=== PATIENT | male | born 1950 | race Asian ===

== ENCOUNTER 2018-06-17 09:31 | Emergency (ER) | payer BC ==
[~2018-06-17] VITALS: Ht 170.2 cm; Wt 60.8 kg
[2018-06-17 09:31] VITALS: BP_SYST 168
[2018-06-17] MEDS ORDERED: KETOROLAC TROMETHAMINE 30 MG VIAL IVP ONE (09:45)
[2018-06-17] MEDS ORDERED: ONDANSETRON HCL 4 MG/2 ML VIAL IVP ONE (09:45)
[2018-06-17 10:19] LABS: BASOPHILS # (AUTO) 0.1 K/uL (0.0-0.2); EOSINOPHILS # (AUTO) 0.1 K/uL (0.0-0.4); EOSINOPHILS % (AUTO) 1.3 % (0.0-4.0); HEMATOCRIT 41.2 % (36-54); HEMOGLOBIN 13.4 g/dL (14.0-18.0); LYMPHOCYTES % (AUTO) 22.6 % (20.5-51.5); MEAN CORPUSCULAR HEMOGLOBIN 27 pg (27-31); MEAN CORPUSCULAR HGB CONC 33 % (32-36); MEAN CORPUSCULAR VOLUME 81 fL (79.0-98.0); MONOCYTES # (AUTO) 0.8 K/uL (0.0-1.0); MONOCYTES % (AUTO) 8.8 % (1.7-9.3); NEUTROPHILS # (AUTO) 5.8 K/uL (1.8-7.7); NEUTROPHILS % (AUTO) 66.3 % (40.0-70.0); PLATELET COUNT (AUTO) 310 K/uL (130-430); RED BLOOD CELL COUNT(AUTO) 5.07 MIL/uL (4.2-6.2); WHITE BLOOD COUNT (AUTO) 8.7 K/uL (4.8-10.8)
[2018-06-17 10:23] LABS: BILIRUBIN,URINE NEGATIVE (NEGATIVE); BLOOD, URINE 1+ (NEGATIVE); CLARITY/URINE CLEAR (CLEAR); COLOR,URINE YELLOW (YELLOW); GLUCOSE,URINE NEGATIVE (NEGATIVE); KETONES,URINE NEGATIVE (NEGATIVE); LEUKOCYTE ESTERASE ,URINE TRACE (NEGATIVE); NITRITE, URINE NEGATIVE (NEGATIVE); PH,URINE 6.5 (5.0-8.0); PROTEIN URINE TRACE (NEGATIVE); UROBILINOGEN,URINE 0.2 (0.2-1.0)
[2018-06-17 10:27] LABS: CALCIUM 9.3 mg/dL (8.4-11.0); CREATININE 2.34 mg/dL (0.55-1.30); POTASSIUM 3.9 mmol/L (3.5-5.1)
[2018-06-17 10:32] LABS: ALBUMIN 3.1 g/dL (3.4-4.8); TOTAL BILIRUBIN 0.5 mg/dL (0.0-1.0)
[2018-06-17 10:41] LABS: BACTERIA,URINE FEW /HPF (None Seen); RBC,URINE 0-3 /HPF (0-3)
[2018-06-17 10:42] LABS: MUCUS,URINE None Seen /LPF (None Seen)
[2018-06-17 12:00] VITALS: BP_SYST 154
== END 2018-06-17 12:00 | disposition home or self-care (01) ==
LOC: SED 09:31
DX: R07.81 Pleurodynia (principal); I10 Essential (primary) hypertension
CPT/HCPCS: 36415; 74176; 80053; 81000; 85025; 87086; 96374; 96375; 99284; J1885; J2405

== ENCOUNTER 2018-09-18 06:12 | Observation (INO) | payer BC ==
[~2018-09-18] VITALS: Ht 170.2 cm; Wt 57.2 kg
[2018-09-18 06:15] VITALS: BP_SYST 165
[2018-09-18] MEDS ORDERED: NITROGLYCERIN 0.4 MG TAB.SUBL SL ONE (06:45)
[2018-09-18] MEDS ORDERED: ASPIRIN 325 MG TABLET PO ONE (06:45)
[2018-09-18] MEDS ORDERED: SIMV10TA2 PO (06:58)
[2018-09-18] MEDS ORDERED: DOCU-144 PO (06:58)
[2018-09-18] MEDS ORDERED: PRED-531 PO (06:58)
[2018-09-18] MEDS ORDERED: IBUP-1968 PO (06:58)
[2018-09-18] MEDS ORDERED: NACL 0.9% 1,000 ML IV ONE ×2 (07:00→07:15)
[2018-09-18 07:05] LABS: BASOPHILS % (AUTO) 0.5 % (0.0-2.0); EOSINOPHILS # (AUTO) 0.1 K/uL (0.0-0.4); EOSINOPHILS % (AUTO) 1.1 % (0.0-4.0); HEMATOCRIT 32.7 % (36-54); LYMPHOCYTES % (AUTO) 12.9 % (20.5-51.5); MEAN CORPUSCULAR HEMOGLOBIN 25 pg (27-31); MEAN CORPUSCULAR HGB CONC 32 % (32-36); MEAN CORPUSCULAR VOLUME 76 fL (79.0-98.0); MONOCYTES # (AUTO) 0.5 K/uL (0.0-1.0); MONOCYTES % (AUTO) 5.9 % (1.7-9.3); NEUTROPHILS # (AUTO) 6.4 K/uL (1.8-7.7); NEUTROPHILS % (AUTO) 79.6 % (40.0-70.0); PLATELET COUNT (AUTO) 258 K/uL (130-430); RED CELL DISTRIBUTION WIDTH 15.6 % (9.0-15.0)
[2018-09-18] MEDS ORDERED: PIPERACILLIN/TAZO 3.375 GM in NS 50 ML IV ONE (07:15)
[2018-09-18] MEDS ORDERED: VANCOMYCIN HCL 1,000 MG in NS 250 ML IV ONE (07:15)
[2018-09-18 07:16] LABS: CREATININE 1.81 mg/dL (0.55-1.30); POTASSIUM 4.7 mmol/L (3.5-5.1)
[2018-09-18 07:21] LABS: ALBUMIN 1.9 g/dL (3.4-4.8); HEMOGLOBIN 10.5 g/dL (14.0-18.0); TOTAL BILIRUBIN 0.3 mg/dL (0.0-1.0)
[2018-09-18] MEDS ORDERED: VANCOMYCIN HCL 1000 MG/VIAL IV ONE (07:29)
[2018-09-18] MEDS ORDERED: PIPERACILLIN/TAZOBACTAM 3.375 GM/VIAL (ZOSYN) IV ONE ×2 (07:29→07:41)
[2018-09-18 07:47] LABS: INR 1.1 (0.80-1.20); PROTHROMBIN TIME 10.8 SECS (9.5-12.5)
[2018-09-18 07:51] LABS: BILIRUBIN,URINE NEGATIVE (NEGATIVE); CLARITY/URINE CLEAR (CLEAR); COLOR,URINE YELLOW (YELLOW); GLUCOSE,URINE NEGATIVE (NEGATIVE); KETONES,URINE NEGATIVE (NEGATIVE); LEUKOCYTE ESTERASE ,URINE NEGATIVE (NEGATIVE); NITRITE, URINE NEGATIVE (NEGATIVE); PROTEIN URINE 1+ (NEGATIVE); UROBILINOGEN,URINE 0.2 (0.2-1.0)
[2018-09-18 07:56] LABS: BLOOD, URINE TRACE (NEGATIVE)
[2018-09-18 08:17] LABS: BACTERIA,URINE FEW /HPF (None Seen); RBC,URINE 0-3 /HPF (0-3); WBC,URINE 0-3 /HPF (0-3)
[2018-09-18 08:18] LABS: MUCUS,URINE None Seen /LPF (None Seen)
[2018-09-18 09:59] VITALS: BP_SYST 147
[2018-09-18] MEDS ORDERED: *HEPARIN PER PHARMACY XX ONE (10:45)
[2018-09-18] MEDS ORDERED: HEPARIN SODIUM,PORCINE 2000 UNITS/0.4 ML BOLUS IVP PRN (11:30)
[2018-09-18] MEDS ORDERED: HEPARIN SODIUM,PORCINE 5000 UNITS/ML VIAL IV ONE (11:30)
[2018-09-18] MEDS ORDERED: methylPREDNISolone SOD SUCC/PF 62.5 MG/ML VIAL IVP ONE (12:30)
[2018-09-18] MEDS: HEPARIN 25,000 UNITS in 250 ML PREMIX IV PRN ×2 (13:13→20:39)
[2018-09-18] MEDS: NACL 0.9% 1,000 ML IV SCH (13:16)
[2018-09-18] MEDS ORDERED: MORPHINE 2 MG/ML INJ. SYRINGE IVP PRN (14:00)
[2018-09-18] MEDS: MORPHINE 4 MG/ML INJ. SYRINGE IVP PRN ×2 (14:17→20:58)
[2018-09-18] MEDS ORDERED: ALBUTEROL SULFATE 0.083% 2.5 MG/3 ML VIAL.NEB INH PRN (14:30)
[2018-09-18] MEDS ORDERED: IPRATROPIUM BROM 0.5 MG/2.5 ML VIAL.NEB (ATROVENT) INH PRN (14:30)
[2018-09-18] MEDS ORDERED: DOCUSATE SODIUM 100 MG CAPSULE PO ONE (15:00)
[2018-09-18 15:15] VITALS: BP_SYST 147
[2018-09-18] MEDS: IPRATROPIUM BROM 0.5 MG/2.5 ML VIAL.NEB (ATROVENT) INH SCH ×3 (16:13→23:00)
[2018-09-18] MEDS: ALBUTEROL SULFATE 0.083% 2.5 MG/3 ML VIAL.NEB INH SCH ×3 (16:13→23:00)
[2018-09-18 19:50] LABS: INR 1.1 (0.80-1.20); PROTHROMBIN TIME 11.2 SECS (9.5-12.5)
[2018-09-18 20:00] VITALS: BP_SYST 137
[2018-09-18] MEDS: HEPARIN SODIUM,PORCINE 3000 UNITS/0.6 ML BOLUS IVP PRN (20:32)
[2018-09-18] MEDS: methylPREDNISolone SOD SUCC/PF 62.5 MG/ML VIAL IVP SCH (20:51)
[2018-09-19 02:40] VITALS: BP_SYST 134
[2018-09-19] MEDS: NACL 0.9% 1,000 ML IV SCH (03:32)
[2018-09-19 03:33] LABS: HEMATOCRIT 29.3 % (36-54); HEMOGLOBIN 9.3 g/dL (14.0-18.0); MEAN CORPUSCULAR HEMOGLOBIN 24 pg (27-31); MEAN CORPUSCULAR HGB CONC 32 % (32-36); MEAN CORPUSCULAR VOLUME 76 fL (79.0-98.0); PLATELET COUNT (AUTO) 247 K/uL (130-430); RED BLOOD CELL COUNT(AUTO) 3.85 MIL/uL (4.2-6.2); RED CELL DISTRIBUTION WIDTH 15.8 % (9.0-15.0); WHITE BLOOD COUNT (AUTO) 7.7 K/uL (4.8-10.8)
[2018-09-19] MEDS: MORPHINE 4 MG/ML INJ. SYRINGE IVP PRN (03:33)
[2018-09-19 03:48] LABS: ALBUMIN 1.8 g/dL (3.4-4.8); CALCIUM 9.2 mg/dL (8.4-11.0); CREATININE 1.86 mg/dL (0.55-1.30); POTASSIUM 4.5 mmol/L (3.5-5.1); TOTAL BILIRUBIN 0.2 mg/dL (0.0-1.0)
[2018-09-19] MEDS: HEPARIN SODIUM,PORCINE 3000 UNITS/0.6 ML BOLUS IVP PRN (04:30)
[2018-09-19 04:32] LABS: BAND % (MANUAL) 3 % (0-6); BASOPHILS % (MANUAL) 0 % (0-2); EOSINOPHILS % (MANUAL) 1 % (0-7); LYMPHOCYTES % (MANUAL) 7 % (20-46); METAMYELOCYTES % 5 % (0-0); MONOCYTES % (MANUAL) 1 % (0-11)
[2018-09-19] MEDS: HEPARIN 25,000 UNITS in 250 ML PREMIX IV PRN (04:34)
[2018-09-19 04:55] LABS: ERYTHROCYTE SEDIMENTATION RATE 92 MM/HR (0-15)
[2018-09-19] MEDS: methylPREDNISolone SOD SUCC/PF 62.5 MG/ML VIAL IVP SCH (06:54)
[2018-09-19] MEDS: IPRATROPIUM BROM 0.5 MG/2.5 ML VIAL.NEB (ATROVENT) INH SCH (07:27)
[2018-09-19] MEDS: ALBUTEROL SULFATE 0.083% 2.5 MG/3 ML VIAL.NEB INH SCH (07:27)
[2018-09-19 08:20] VITALS: BP_SYST 154
[2018-09-19] MEDS ORDERED: DOCUSATE SODIUM 100 MG CAPSULE PO SCH (09:00)
[2018-09-19 10:38] VITALS: BP_SYST 149
[2018-09-19 11:33] VITALS: BP_SYST 133
== END 2018-09-19 11:10 | disposition home or self-care (01) ==
LOC: SED 06:12 → STU 08:40
PROVIDERS: ADMIT Internal Medicine Hospice and Palliative Medicine; ATTEND Internal Medicine Hospice and Palliative Medicine
DX: R07.9 Chest pain, unspecified (principal); R42 Dizziness and giddiness; R06.02 Shortness of breath; C81.90 Hodgkin lymphoma, unspecified, unspecified site; R79.1 Abnormal coagulation profile; E11.9 Type 2 diabetes mellitus without complications; I10 Essential (primary) hypertension; E78.00 Pure hypercholesterolemia, unspecified; E78.5 Hyperlipidemia, unspecified; N17.9 Acute kidney failure, unspecified
CPT/HCPCS: 36415; 71045; 76770; 78579; 78580-TC; 80053; 81000-TC; 82550-TC; 83605; 83880; 84484; 85007; 85025; 85027; 85379; 85610-TC; 85651-TC; 85730-TC; 87040-TC; 87081; 93005; 93970; 94640; 94760; 96365; 96366; 96367; 96368; 99285; A9539; A9540; G0378; J1644; J2270; J2543; J2930; J3370; J7030; J7613

== ENCOUNTER 2018-10-08 21:08 | Inpatient (IN) | payer BC ==
[~2018-10-08] VITALS: Ht 170.2 cm; Wt 55.5 kg
[~2018-10-08 21:08] MED LIST: DOCU-144 PO; IBUP-1968 PO; PRED-531 PO; SIMV10TA2 PO
[2018-10-08 21:16] VITALS: BP_SYST 123
[2018-10-08] MEDS ORDERED: NACL 0.9% 1,000 ML IV ONE ×2 (21:45→23:45)
[2018-10-08] MEDS ORDERED: IBUPROFEN 800 MG TABLET PO ONE (22:00)
[2018-10-08] MEDS ORDERED: LEVOFLOXACIN 500 MG/D5W 100 ML IV ONE (22:45)
[2018-10-08] MEDS ORDERED: PIPERACILLIN/TAZO 3.375 GM in NS 50 ML IV ONE (22:45)
[2018-10-08] MEDS ORDERED: PIPERACILLIN/TAZOBACTAM 3.375 GM/VIAL (ZOSYN) IV ONE (23:06)
[2018-10-08] MEDS ORDERED: MORP100T24 PO (23:07)
[2018-10-08 23:10] LABS: CALCIUM 8.3 mg/dL (8.4-11.0); CREATININE 1.67 mg/dL (0.55-1.30); POTASSIUM 5.5 mmol/L (3.5-5.1)
[2018-10-08 23:16] LABS: BILIRUBIN,URINE NEGATIVE (NEGATIVE); BLOOD, URINE 1+ (NEGATIVE); CLARITY/URINE CLEAR (CLEAR); COLOR,URINE YELLOW (YELLOW); GLUCOSE,URINE NEGATIVE (NEGATIVE); KETONES,URINE NEGATIVE (NEGATIVE); LEUKOCYTE ESTERASE ,URINE TRACE (NEGATIVE); NITRITE, URINE NEGATIVE (NEGATIVE); PH,URINE 5.5 (5.0-8.0); PROTEIN URINE 1+ (NEGATIVE)
[2018-10-08 23:17] LABS: TOTAL BILIRUBIN 1.1 mg/dL (0.0-1.0)
[2018-10-08 23:24] LABS: INR 1.1 (0.80-1.20)
[2018-10-08 23:32] LABS: BACTERIA,URINE FEW /HPF (None Seen)
[2018-10-08] MEDS ORDERED: SODIUM POLYSTYRENE SULFONATE 15 GM/60 ML UDBTL PO ONE (23:45)
[2018-10-08 23:47] LABS: HEMOGLOBIN 8.9 g/dL (14.0-18.0); MEAN CORPUSCULAR HEMOGLOBIN 24 pg (27-31); MEAN CORPUSCULAR HGB CONC 32 % (32-36); MEAN CORPUSCULAR VOLUME 75 fL (79.0-98.0); RED BLOOD CELL COUNT(AUTO) 3.73 MIL/uL (4.2-6.2); RED CELL DISTRIBUTION WIDTH 16.7 % (9.0-15.0)
[2018-10-08 23:48] LABS: WHITE BLOOD COUNT (AUTO) 0.2 K/uL (4.8-10.8)
[2018-10-08 23:49] LABS: PLATELET COUNT (AUTO) 37 K/uL (130-430)
[2018-10-09 00:41] LABS: BASOPHILS % (MANUAL) 0 % (0-2); EOSINOPHILS % (MANUAL) 2 % (0-7); LYMPHOCYTES % (MANUAL) 88 % (20-46); MONOCYTES % (MANUAL) 4 % (0-11)
[2018-10-09 01:33] VITALS: BP_SYST 137
[2018-10-09] MEDS: NACL 0.9% 1,000 ML IV SCH ×2 (01:43→10:45)
[2018-10-09] MEDS ORDERED: VANCOMYCIN HCL 1 GM/NS PREMIX 250 ML IV SCH (02:00)
[2018-10-09] MEDS ORDERED: VANCOMYCIN HCL 750 MG in NS 250 ML IV SCH (02:00)
[2018-10-09 02:11] VITALS: BP_SYST 137
[2018-10-09] MEDS ORDERED: VANCOMYCIN HCL 1000 MG/VIAL IV ONE (02:45)
[2018-10-09] MEDS ORDERED: PIPERACILLIN/TAZOBACTAM 3.375 GM/VIAL (ZOSYN) IV ONE (02:45)
[2018-10-09] MEDS: ONDANSETRON HCL 4 MG/2 ML VIAL IVP PRN ×3 (04:56→20:36)
[2018-10-09] MEDS ORDERED: MORPHINE 2 MG/ML INJ. SYRINGE IVP PRN (05:45)
[2018-10-09] MEDS ORDERED: PIPERACILLIN/TAZO 3.375 GM in NS 50 ML IV SCH (06:00)
[2018-10-09] MEDS: PANTOPRAZOLE SODIUM 40 MG/VIAL (PROTONIX) IVP SCH ×2 (06:33→09:50)
[2018-10-09] MEDS ORDERED: PANTOPRAZOLE SODIUM 40 MG TAB PO SCH (07:00)
[2018-10-09 07:45] LABS: ALBUMIN 1.7 g/dL (3.4-4.8); CALCIUM 7.8 mg/dL (8.4-11.0); CREATININE 1.3 mg/dL (0.55-1.30); POTASSIUM 5.1 mmol/L (3.5-5.1); TOTAL BILIRUBIN 1.3 mg/dL (0.0-1.0)
[2018-10-09 07:50] VITALS: BP_SYST 157
[2018-10-09 07:55] LABS: EOSINOPHILS % (AUTO) 5.2 % (0.0-4.0); HEMOGLOBIN 8.8 g/dL (14.0-18.0); LYMPHOCYTES # (AUTO) 0.1 K/uL (1.0-5.5); LYMPHOCYTES % (AUTO) 86.8 % (20.5-51.5); MEAN CORPUSCULAR HEMOGLOBIN 24 pg (27-31); MEAN CORPUSCULAR HGB CONC 32 % (32-36); MEAN CORPUSCULAR VOLUME 75 fL (79.0-98.0); MONOCYTES % (AUTO) 4.8 % (1.7-9.3); NEUTROPHILS % (AUTO) 3.2 % (40.0-70.0); RED BLOOD CELL COUNT(AUTO) 3.72 MIL/uL (4.2-6.2); RED CELL DISTRIBUTION WIDTH 16.8 % (9.0-15.0)
[2018-10-09 08:04] LABS: WHITE BLOOD COUNT (AUTO) 0.1 K/uL (4.8-10.8)
[2018-10-09] MEDS: MORPHINE 2 MG/ML INJ. SYRINGE IVP PRN ×5 (08:40→23:49)
[2018-10-09] MEDS: METOPROLOL TARTRATE 25 MG TABLET PO SCH ×2 (08:41→20:28)
[2018-10-09] MEDS: FLUCONAZOLE 200 mg/ NS 100 ML IV SCH (09:47)
[2018-10-09] MEDS ORDERED: NACL 0.9% 1,000 ML IV SCH (10:15)
[2018-10-09] MEDS: CLOTRIMAZOLE 10 MG TROCHE MM SCH ×4 (10:45→21:41)
[2018-10-09] MEDS ORDERED: ACYCLOVIR IV 500 MG in D5W 100 ML IV ONE (11:00)
[2018-10-09] MEDS ORDERED: LIDOCAINE VISCOUS 2%, 15 ML UDC MM PRN (11:15)
[2018-10-09 11:49] LABS: PLATELET COUNT (AUTO) 31 K/uL (130-430)
[2018-10-09 12:30] VITALS: BP_SYST 138
[2018-10-09] MEDS: LIDOCAINE VISCOUS 2%, 15 ML UDC MM PRN ×3 (12:41→21:42)
[2018-10-09 16:00] VITALS: BP_SYST 135
[2018-10-09] MEDS ORDERED: FILGRASTIM Non-Formulary 0.48 MG/VIAL SUBCUT SCH (17:00)
[2018-10-09] MEDS: TBO-FILGRASTIM 480 MCG/0.8 ML SYRINGE SUBCUT SCH (18:03)
[2018-10-09] MEDS: 0.45% NACL 1,000 ML IV SCH (18:09)
[2018-10-09 20:00] VITALS: BP_SYST 139
[2018-10-09] MEDS: IPRATROPIUM/ALBUTEROL SULFATE 3 ML AMPUL.NEB (DUONEB) INH PRN ×2 (20:13→23:15)
[2018-10-09] MEDS: MORPHINE SULFATE 15 MG TABLET.ER PO SCH (20:27)
[2018-10-09] MEDS: CEFEPIME 2 GM in D5W 100 ML IV SCH (20:29)
[2018-10-09] MEDS: VANCOMYCIN HCL 750 MG in NS 250 ML IV SCH (20:29)
[2018-10-09] MEDS ORDERED: MORPHINE SULFATE 100 MG TABLET.SA PO SCH (21:00)
[2018-10-09] MEDS: ACETAMINOPHEN 325 MG TABLET PO PRN (21:40)
[2018-10-09] MEDS ORDERED: guaiFENesin/DEXTROMETHORPHAN 10 ML UDC PO PRN (21:45)
[2018-10-10] VITALS (13 sets, daily range): BP systolic 120–147
[2018-10-10] MEDS: MORPHINE 2 MG/ML INJ. SYRINGE IVP PRN ×2 (03:37→12:55)
[2018-10-10] MEDS: CLOTRIMAZOLE 10 MG TROCHE MM SCH ×5 (05:58→21:42)
[2018-10-10 06:15] LABS: EOSINOPHILS % (AUTO) 0.6 % (0.0-4.0); HEMATOCRIT 22.6 % (36-54); LYMPHOCYTES # (AUTO) 0.1 K/uL (1.0-5.5); LYMPHOCYTES % (AUTO) 94.9 % (20.5-51.5); MEAN CORPUSCULAR HEMOGLOBIN 24 pg (27-31); MEAN CORPUSCULAR HGB CONC 32 % (32-36); MEAN CORPUSCULAR VOLUME 75 fL (79.0-98.0); MONOCYTES % (AUTO) 2.1 % (1.7-9.3); NEUTROPHILS % (AUTO) 2.4 % (40.0-70.0); RED BLOOD CELL COUNT(AUTO) 3.01 MIL/uL (4.2-6.2); RED CELL DISTRIBUTION WIDTH 16.3 % (9.0-15.0)
[2018-10-10 06:37] LABS: ALBUMIN 1.5 g/dL (3.4-4.8); ANION GAP 4 (5-15); ASPARTATE AMINOTRANSFERASE 10 U/L (10-37); CALCIUM 7.7 mg/dL (8.4-11.0); CHLORIDE 109 mmol/L (98-107); CREATININE 1.41 mg/dL (0.55-1.30); GFR AFRICAN AMERICAN 64 mL/min (>90); GLUCOSE 149 mg/dL (70-99); PHOSPHORUS 3.8 mg/dL (2.7-4.5); POTASSIUM 4.2 mmol/L (3.5-5.1); SODIUM SERUM 140 mmol/L (136-145); TOTAL BILIRUBIN 1.3 mg/dL (0.0-1.0); UREA NITROGEN, BLOOD 26 mg/dL (8-21)
[2018-10-10 06:38] LABS: ALANINE AMINOTRANSFERASE < 5 U/L (12-78)
[2018-10-10 06:42] LABS: TOTAL IRON BIND. CAPACITY 118 ug/dL (250-450)
[2018-10-10 07:39] LABS: PLATELET COUNT (AUTO) 22 K/uL (130-430)
[2018-10-10 07:40] LABS: HEMOGLOBIN 7.3 g/dL (14.0-18.0)
[2018-10-10 08:09] LABS: WHITE BLOOD COUNT (AUTO) 0.1 K/uL (4.8-10.8)
[2018-10-10] MEDS: FLUCONAZOLE 200 mg/ NS 100 ML IV SCH (08:22)
[2018-10-10] MEDS: PANTOPRAZOLE SODIUM 40 MG/VIAL (PROTONIX) IVP SCH (08:22)
[2018-10-10] MEDS: ONDANSETRON HCL 4 MG/2 ML VIAL IVP PRN (08:23)
[2018-10-10] MEDS: METOPROLOL TARTRATE 25 MG TABLET PO SCH ×2 (08:23→20:21)
[2018-10-10] MEDS: MORPHINE SULFATE 15 MG TABLET.ER PO SCH ×2 (08:23→20:22)
[2018-10-10] MEDS: CEFEPIME 2 GM in D5W 100 ML IV SCH ×2 (09:40→20:23)
[2018-10-10] MEDS ORDERED: NS 500 ML IV ONE ×2 (09:45→15:15)
[2018-10-10] MEDS: LIDOCAINE VISCOUS 2%, 15 ML UDC MM PRN ×2 (09:50→15:03)
[2018-10-10] MEDS: 0.45% NACL 1,000 ML IV SCH ×2 (10:10→18:44)
[2018-10-10] MEDS ORDERED: PROCHLORPERAZINE EDISYLATE 10 MG/2 ML VIAL IVP PRN (10:30)
[2018-10-10] MEDS: IPRATROPIUM/ALBUTEROL SULFATE 3 ML AMPUL.NEB (DUONEB) INH PRN ×2 (11:17→13:51)
[2018-10-10] MEDS: ACYCLOVIR IV 500 MG in D5W 100 ML IV SCH (12:13)
[2018-10-10] MEDS: ACETAMINOPHEN 325 MG TABLET PO PRN (15:15)
[2018-10-10 15:27] LABS: EOSINOPHILS % (AUTO) 1.1 % (0.0-4.0); HEMATOCRIT 22.2 % (36-54); LYMPHOCYTES # (AUTO) 0.1 K/uL (1.0-5.5); MEAN CORPUSCULAR HEMOGLOBIN 24 pg (27-31); MEAN CORPUSCULAR HGB CONC 31 % (32-36); MEAN CORPUSCULAR VOLUME 76 fL (79.0-98.0); MONOCYTES % (AUTO) 2.6 % (1.7-9.3); NEUTROPHILS % (AUTO) 3.4 % (40.0-70.0); RED BLOOD CELL COUNT(AUTO) 2.93 MIL/uL (4.2-6.2); RED CELL DISTRIBUTION WIDTH 16.7 % (9.0-15.0)
[2018-10-10 15:49] LABS: HEMOGLOBIN 6.9 g/dL (14.0-18.0); PLATELET COUNT (AUTO) 17 K/uL (130-430); WHITE BLOOD COUNT (AUTO) 0.1 K/uL (4.8-10.8)
[2018-10-10 15:55] LABS: LYMPHOCYTES % (AUTO) 92.9 % (20.5-51.5)
[2018-10-10 16:13] LABS: CALCIUM 7.6 mg/dL (8.4-11.0); CREATININE 1.39 mg/dL (0.55-1.30); POTASSIUM 3.1 mmol/L (3.5-5.1)
[2018-10-10] MEDS: TBO-FILGRASTIM 480 MCG/0.8 ML SYRINGE SUBCUT SCH (17:14)
[2018-10-10] MEDS ORDERED: POTASSIUM CHLORIDE 20 MEQ in NS 250 ML IV ONE (19:00)
[2018-10-10] MEDS: VANCOMYCIN HCL 750 MG in NS 250 ML IV SCH (20:23)
[2018-10-11] VITALS (22 sets, daily range): BP systolic 148–167
[2018-10-11] MEDS: MORPHINE 2 MG/ML INJ. SYRINGE IVP PRN ×2 (01:21→04:24)
[2018-10-11] MEDS: CLOTRIMAZOLE 10 MG TROCHE MM SCH ×5 (05:10→21:29)
[2018-10-11 05:43] LABS: EOSINOPHILS % (AUTO) 4.3 % (0.0-4.0); HEMATOCRIT 24.9 % (36-54); HEMOGLOBIN 8.1 g/dL (14.0-18.0); LYMPHOCYTES # (AUTO) 0.1 K/uL (1.0-5.5); LYMPHOCYTES % (AUTO) 87.2 % (20.5-51.5); MEAN CORPUSCULAR HEMOGLOBIN 25 pg (27-31); MEAN CORPUSCULAR HGB CONC 32 % (32-36); MEAN CORPUSCULAR VOLUME 76 fL (79.0-98.0); MONOCYTES % (AUTO) 3.2 % (1.7-9.3); NEUTROPHILS % (AUTO) 5.3 % (40.0-70.0); PLATELET COUNT (AUTO) 74 K/uL (130-430); RED BLOOD CELL COUNT(AUTO) 3.29 MIL/uL (4.2-6.2); RED CELL DISTRIBUTION WIDTH 16.8 % (9.0-15.0)
[2018-10-11 05:51] LABS: WHITE BLOOD COUNT (AUTO) 0.1 K/uL (4.8-10.8)
[2018-10-11 05:59] LABS: INR 1.3 (0.80-1.20)
[2018-10-11 07:11] LABS: ALBUMIN 1.6 g/dL (3.4-4.8); CALCIUM 7.7 mg/dL (8.4-11.0); CREATININE 1.21 mg/dL (0.55-1.30); TOTAL BILIRUBIN 2.1 mg/dL (0.0-1.0)
[2018-10-11 07:38] LABS: POTASSIUM 2.6 mmol/L (3.5-5.1)
[2018-10-11] MEDS: ACYCLOVIR IV 500 MG in D5W 100 ML IV SCH (08:42)
[2018-10-11] MEDS: PANTOPRAZOLE SODIUM 40 MG/VIAL (PROTONIX) IVP SCH (08:42)
[2018-10-11] MEDS: METOPROLOL TARTRATE 25 MG TABLET PO SCH ×2 (08:43→21:28)
[2018-10-11] MEDS: MORPHINE SULFATE 15 MG TABLET.ER PO SCH ×2 (08:43→21:28)
[2018-10-11] MEDS: ONDANSETRON HCL 4 MG/2 ML VIAL IVP PRN (08:48)
[2018-10-11] MEDS ORDERED: POTASSIUM CHLORIDE 60 MEQ, LIDOCAINE JECT 2% PF 100 MG 50 MG in NS 500 ML IV ONE (09:15)
[2018-10-11] MEDS ORDERED: FUROSEMIDE 20 MG/2 ML VIAL IVP ONE (10:15)
[2018-10-11] MEDS: CEFEPIME 2 GM in D5W 100 ML IV SCH ×2 (10:18→21:25)
[2018-10-11] MEDS: FLUCONAZOLE 200 mg/ NS 100 ML IV SCH (11:12)
[2018-10-11 12:22] LABS: FOLATE (FOLIC ACID) 9.3 ng/mL (>3.0)
[2018-10-11] MEDS: TBO-FILGRASTIM 480 MCG/0.8 ML SYRINGE SUBCUT SCH (18:20)
[2018-10-11] MEDS: VANCOMYCIN HCL 750 MG in NS 250 ML IV SCH (21:26)
[2018-10-11 21:41] LABS: POTASSIUM 3.7 mmol/L (3.5-5.1)
[2018-10-11] MEDS: 0.45% NACL 1,000 ML IV SCH (21:43)
[2018-10-11] MEDS ORDERED: FUROSEMIDE 20 MG/2 ML VIAL ONE (23:24)
[2018-10-12] MEDS: LIDOCAINE VISCOUS 2%, 15 ML UDC MM PRN (01:25)
[2018-10-12 01:43] VITALS: BP_SYST 150
[2018-10-12] MEDS: CLOTRIMAZOLE 10 MG TROCHE MM SCH ×5 (06:07→21:15)
[2018-10-12] MEDS: ONDANSETRON HCL 4 MG/2 ML VIAL IVP PRN (06:16)
[2018-10-12 06:26] LABS: ALBUMIN 1.7 g/dL (3.4-4.8); CREATININE 1.46 mg/dL (0.55-1.30); TOTAL BILIRUBIN 1.9 mg/dL (0.0-1.0)
[2018-10-12 06:32] LABS: POTASSIUM 2.6 mmol/L (3.5-5.1)
[2018-10-12 08:00] VITALS: BP_SYST 137
[2018-10-12 08:05] LABS: EOSINOPHILS % (AUTO) 1.5 % (0.0-4.0); HEMATOCRIT 29.6 % (36-54); HEMOGLOBIN 9.4 g/dL (14.0-18.0); LYMPHOCYTES # (AUTO) 0.1 K/uL (1.0-5.5); LYMPHOCYTES % (AUTO) 69.7 % (20.5-51.5); MEAN CORPUSCULAR HEMOGLOBIN 24 pg (27-31); MEAN CORPUSCULAR HGB CONC 32 % (32-36); MEAN CORPUSCULAR VOLUME 77 fL (79.0-98.0); MONOCYTES % (AUTO) 13.8 % (1.7-9.3); PLATELET COUNT (AUTO) 55 K/uL (130-430); RED BLOOD CELL COUNT(AUTO) 3.87 MIL/uL (4.2-6.2)
[2018-10-12] MEDS: KCL 20 mEq in 100 mL (PREMIX) 100 ML IV SCH ×3 (08:24→15:57)
[2018-10-12] MEDS: PANTOPRAZOLE SODIUM 40 MG/VIAL (PROTONIX) IVP SCH (08:24)
[2018-10-12] MEDS: FLUCONAZOLE 200 mg/ NS 100 ML IV SCH (08:25)
[2018-10-12] MEDS: MORPHINE SULFATE 15 MG TABLET.ER PO SCH ×2 (08:39→20:59)
[2018-10-12] MEDS: METOPROLOL TARTRATE 25 MG TABLET PO SCH ×2 (08:39→20:59)
[2018-10-12 08:47] LABS: WHITE BLOOD COUNT (AUTO) 0.2 K/uL (4.8-10.8)
[2018-10-12] MEDS: ACYCLOVIR IV 500 MG in D5W 100 ML IV SCH (09:53)
[2018-10-12] MEDS: CEFEPIME 2 GM in D5W 100 ML IV SCH ×2 (10:51→20:56)
[2018-10-12 11:22] VITALS: BP_SYST 107
[2018-10-12] MEDS: 0.45% NACL 1,000 ML IV SCH ×2 (12:10→20:55)
[2018-10-12] MEDS: MICAFUNGIN SODIUM 100 MG in NS 100 ML IV SCH (13:05)
[2018-10-12 16:04] VITALS: BP_SYST 114
[2018-10-12] MEDS: TBO-FILGRASTIM 480 MCG/0.8 ML SYRINGE SUBCUT SCH (19:18)
[2018-10-12 20:00] VITALS: BP_SYST 140
[2018-10-12] MEDS ORDERED: NACL 0.9% 1,000 ML IV ONE (21:00)
[2018-10-13] VITALS: BP_SYST 145; BP_SYST 155
[2018-10-13] MEDS: CLOTRIMAZOLE 10 MG TROCHE MM SCH ×5 (05:38→22:21)
[2018-10-13 06:19] LABS: ALBUMIN 1.5 g/dL (3.4-4.8); CALCIUM 7.3 mg/dL (8.4-11.0); CREATININE 1.28 mg/dL (0.55-1.30); PHOSPHORUS 1.3 mg/dL (2.7-4.5); POTASSIUM 3.1 mmol/L (3.5-5.1); TOTAL BILIRUBIN 1.2 mg/dL (0.0-1.0)
[2018-10-13 07:01] LABS: BASOPHILS % (AUTO) 0.3 % (0.0-2.0); EOSINOPHILS % (AUTO) 0.4 % (0.0-4.0); HEMATOCRIT 25.6 % (36-54); HEMOGLOBIN 8.2 g/dL (14.0-18.0); LYMPHOCYTES # (AUTO) 0.2 K/uL (1.0-5.5); LYMPHOCYTES % (AUTO) 52.2 % (20.5-51.5); MEAN CORPUSCULAR HEMOGLOBIN 24 pg (27-31); MEAN CORPUSCULAR HGB CONC 32 % (32-36); MEAN CORPUSCULAR VOLUME 76 fL (79.0-98.0); MONOCYTES % (AUTO) 1.9 % (1.7-9.3); NEUTROPHILS % (AUTO) 45.2 % (40.0-70.0); RED BLOOD CELL COUNT(AUTO) 3.36 MIL/uL (4.2-6.2); RED CELL DISTRIBUTION WIDTH 16.8 % (9.0-15.0)
[2018-10-13 07:48] LABS: NEUTROPHILS # (AUTO) 0.2 K/uL (1.8-7.7)
[2018-10-13 07:50] LABS: PLATELET COUNT (AUTO) 39 K/uL (130-430); WHITE BLOOD COUNT (AUTO) 0.4 K/uL (4.8-10.8)
[2018-10-13 08:00] VITALS: BP_SYST 138
[2018-10-13] MEDS: PANTOPRAZOLE SODIUM 40 MG/VIAL (PROTONIX) IVP SCH (09:09)
[2018-10-13] MEDS: CEFEPIME 2 GM in D5W 100 ML IV SCH ×2 (09:10→22:18)
[2018-10-13] MEDS: MORPHINE SULFATE 15 MG TABLET.ER PO SCH ×2 (09:11→22:19)
[2018-10-13] MEDS: DOCUSATE SODIUM 250 MG CAPSULE PO SCH (09:11)
[2018-10-13] MEDS: METOPROLOL TARTRATE 25 MG TABLET PO SCH ×2 (09:12→22:19)
[2018-10-13] MEDS ORDERED: POTASSIUM CHLORIDE 20 MEQ TAB.PRT.SR PO ONE (09:15)
[2018-10-13] MEDS ORDERED: K PHOS 15 MM in NS 250 ML IV ONE (09:15)
[2018-10-13] MEDS: ACYCLOVIR IV 500 MG in D5W 100 ML IV SCH (10:50)
[2018-10-13] MEDS: LIDOCAINE VISCOUS 2%, 15 ML UDC MM SCH ×2 (12:27→18:12)
[2018-10-13] MEDS: MICAFUNGIN SODIUM 100 MG in NS 100 ML IV SCH (12:28)
[2018-10-13 12:29] VITALS: BP_SYST 130
[2018-10-13 15:43] VITALS: BP_SYST 141
[2018-10-13] MEDS: TBO-FILGRASTIM 480 MCG/0.8 ML SYRINGE SUBCUT SCH (18:13)
[2018-10-13] MEDS: 0.45% NACL 1,000 ML IV SCH (18:31)
[2018-10-13] MEDS: MORPHINE 2 MG/ML INJ. SYRINGE IVP PRN (19:55)
[2018-10-13 20:00] VITALS: BP_SYST 138
[2018-10-14] VITALS: BP_SYST 129
[2018-10-14] MEDS: CLOTRIMAZOLE 10 MG TROCHE MM SCH ×5 (05:28→21:24)
[2018-10-14 06:12] LABS: BASOPHILS % (AUTO) 0.7 % (0.0-2.0); EOSINOPHILS % (AUTO) 0.1 % (0.0-4.0); HEMATOCRIT 25.4 % (36-54); HEMOGLOBIN 8.1 g/dL (14.0-18.0); LYMPHOCYTES # (AUTO) 0.2 K/uL (1.0-5.5); LYMPHOCYTES % (AUTO) 26.7 % (20.5-51.5); MEAN CORPUSCULAR HEMOGLOBIN 25 pg (27-31); MEAN CORPUSCULAR HGB CONC 32 % (32-36); MEAN CORPUSCULAR VOLUME 76 fL (79.0-98.0); MONOCYTES % (AUTO) 1.5 % (1.7-9.3); RED BLOOD CELL COUNT(AUTO) 3.33 MIL/uL (4.2-6.2); RED CELL DISTRIBUTION WIDTH 17.3 % (9.0-15.0)
[2018-10-14 06:18] LABS: ALBUMIN 1.5 g/dL (3.4-4.8); CALCIUM 7.7 mg/dL (8.4-11.0); CREATININE 1.15 mg/dL (0.55-1.30); PHOSPHORUS 1.7 mg/dL (2.7-4.5); POTASSIUM 3.5 mmol/L (3.5-5.1)
[2018-10-14] MEDS: LIDOCAINE VISCOUS 2%, 15 ML UDC MM SCH ×3 (06:28→17:00)
[2018-10-14 06:59] LABS: PLATELET COUNT (AUTO) 46 K/uL (130-430); WHITE BLOOD COUNT (AUTO) 0.8 K/uL (4.8-10.8)
[2018-10-14 07:00] LABS: NEUTROPHILS # (AUTO) 0.6 K/uL (1.8-7.7)
[2018-10-14 08:00] VITALS: BP_SYST 130
[2018-10-14] MEDS: CEFEPIME 2 GM in D5W 100 ML IV SCH ×2 (08:11→21:23)
[2018-10-14] MEDS: MORPHINE SULFATE 15 MG TABLET.ER PO SCH ×2 (08:22→21:22)
[2018-10-14] MEDS: METOPROLOL TARTRATE 25 MG TABLET PO SCH ×2 (08:22→21:23)
[2018-10-14] MEDS: DOCUSATE SODIUM 250 MG CAPSULE PO SCH (08:22)
[2018-10-14] MEDS: PANTOPRAZOLE SODIUM 40 MG/VIAL (PROTONIX) IVP SCH (08:23)
[2018-10-14] MEDS: ACYCLOVIR IV 500 MG in D5W 100 ML IV SCH (09:53)
[2018-10-14] MEDS ORDERED: K PHOS 15 MM in NS 250 ML IV ONE (10:00)
[2018-10-14 11:07] VITALS: BP_SYST 142
[2018-10-14] MEDS: MICAFUNGIN SODIUM 100 MG in NS 100 ML IV SCH (11:15)
[2018-10-14 15:26] VITALS: BP_SYST 108
[2018-10-14] MEDS: TBO-FILGRASTIM 480 MCG/0.8 ML SYRINGE SUBCUT SCH (17:00)
[2018-10-14] MEDS: POTASSIUM CHLORIDE 10 MEQ in 0.45% NACL 1,000 ML IV SCH (18:00)
[2018-10-15 00:45] VITALS: BP_SYST 134
[2018-10-15] MEDS: LIDOCAINE VISCOUS 2%, 15 ML UDC MM SCH ×3 (06:16→18:04)
[2018-10-15] MEDS: CLOTRIMAZOLE 10 MG TROCHE MM SCH ×4 (06:17→18:05)
[2018-10-15 07:07] LABS: BASOPHILS % (AUTO) 0.2 % (0.0-2.0); EOSINOPHILS % (AUTO) 0.1 % (0.0-4.0); HEMOGLOBIN 8.6 g/dL (14.0-18.0); LYMPHOCYTES # (AUTO) 0.4 K/uL (1.0-5.5); LYMPHOCYTES % (AUTO) 15.3 % (20.5-51.5); MEAN CORPUSCULAR HEMOGLOBIN 25 pg (27-31); MEAN CORPUSCULAR HGB CONC 32 % (32-36); MEAN CORPUSCULAR VOLUME 77 fL (79.0-98.0); MONOCYTES # (AUTO) 0.1 K/uL (0.0-1.0); NEUTROPHILS # (AUTO) 2.1 K/uL (1.8-7.7); NEUTROPHILS % (AUTO) 81.4 % (40.0-70.0); RED BLOOD CELL COUNT(AUTO) 3.52 MIL/uL (4.2-6.2); RED CELL DISTRIBUTION WIDTH 16.9 % (9.0-15.0)
[2018-10-15 07:22] LABS: ALBUMIN 1.5 g/dL (3.4-4.8); CREATININE 1.23 mg/dL (0.55-1.30); POTASSIUM 3.5 mmol/L (3.5-5.1); TOTAL BILIRUBIN 0.9 mg/dL (0.0-1.0)
[2018-10-15 08:00] VITALS: BP_SYST 113
[2018-10-15 08:00] LABS: WHITE BLOOD COUNT (AUTO) 2.6 K/uL (4.8-10.8)
[2018-10-15] MEDS: PANTOPRAZOLE SODIUM 40 MG/VIAL (PROTONIX) IVP SCH (08:14)
[2018-10-15] MEDS: DOCUSATE SODIUM 250 MG CAPSULE PO SCH (08:15)
[2018-10-15] MEDS: MORPHINE SULFATE 15 MG TABLET.ER PO SCH ×2 (08:15→20:57)
[2018-10-15] MEDS: ACYCLOVIR IV 500 MG in D5W 100 ML IV SCH (08:15)
[2018-10-15] MEDS: METOPROLOL TARTRATE 25 MG TABLET PO SCH ×2 (08:16→20:57)
[2018-10-15] MEDS ORDERED: POTASSIUM CHLORIDE 20 MEQ TAB.PRT.SR PO ONE (09:30)
[2018-10-15] MEDS: CEFEPIME 2 GM in D5W 100 ML IV SCH ×2 (09:31→20:57)
[2018-10-15 10:01] LABS: PLATELET COUNT (AUTO) 71 K/uL (130-430)
[2018-10-15] MEDS: POTASSIUM CHLORIDE 10 MEQ in 0.45% NACL 1,000 ML IV SCH (10:16)
[2018-10-15] MEDS: MICAFUNGIN SODIUM 100 MG in NS 100 ML IV SCH (11:14)
[2018-10-15 11:17] VITALS: BP_SYST 94
[2018-10-15 15:05] VITALS: BP_SYST 116
[2018-10-15] MEDS: TBO-FILGRASTIM 480 MCG/0.8 ML SYRINGE SUBCUT SCH (18:04)
[2018-10-15 20:00] VITALS: BP_SYST 127
[2018-10-16] VITALS: BP_SYST 134
[2018-10-16 06:06] LABS: ALBUMIN 1.6 g/dL (3.4-4.8); CALCIUM 7.5 mg/dL (8.4-11.0); CREATININE 1.23 mg/dL (0.55-1.30); PHOSPHORUS 1.8 mg/dL (2.7-4.5); POTASSIUM 3.9 mmol/L (3.5-5.1); TOTAL BILIRUBIN 0.8 mg/dL (0.0-1.0)
[2018-10-16] MEDS: LIDOCAINE VISCOUS 2%, 15 ML UDC MM SCH ×3 (06:11→16:42)
[2018-10-16] MEDS: POTASSIUM CHLORIDE 10 MEQ in 0.45% NACL 1,000 ML IV SCH (06:11)
[2018-10-16 06:31] LABS: BASOPHILS % (AUTO) 0.1 % (0.0-2.0); HEMATOCRIT 26.1 % (36-54); HEMOGLOBIN 8.4 g/dL (14.0-18.0); LYMPHOCYTES # (AUTO) 0.6 K/uL (1.0-5.5); LYMPHOCYTES % (AUTO) 9.5 % (20.5-51.5); MEAN CORPUSCULAR HEMOGLOBIN 25 pg (27-31); MEAN CORPUSCULAR HGB CONC 32 % (32-36); MEAN CORPUSCULAR VOLUME 77 fL (79.0-98.0); MONOCYTES # (AUTO) 0.2 K/uL (0.0-1.0); MONOCYTES % (AUTO) 2.6 % (1.7-9.3); NEUTROPHILS # (AUTO) 5.9 K/uL (1.8-7.7); NEUTROPHILS % (AUTO) 87.8 % (40.0-70.0); PLATELET COUNT (AUTO) 100 K/uL (130-430); RED CELL DISTRIBUTION WIDTH 16.9 % (9.0-15.0); WHITE BLOOD COUNT (AUTO) 6.7 K/uL (4.8-10.8)
[2018-10-16 08:00] VITALS: BP_SYST 111
[2018-10-16] MEDS: MORPHINE SULFATE 15 MG TABLET.ER PO SCH (08:14)
[2018-10-16] MEDS: CEFEPIME 2 GM in D5W 100 ML IV SCH (08:14)
[2018-10-16] MEDS: PANTOPRAZOLE SODIUM 40 MG/VIAL (PROTONIX) IVP SCH (08:14)
[2018-10-16] MEDS: DOCUSATE SODIUM 250 MG CAPSULE PO SCH ×2 (08:16→08:24)
[2018-10-16] MEDS: METOPROLOL TARTRATE 25 MG TABLET PO SCH (08:17)
[2018-10-16] MEDS ORDERED: NA PHOS 15 MM in NS 250 ML IV ONE (08:45)
[2018-10-16] MEDS: ACYCLOVIR IV 500 MG in D5W 100 ML IV SCH (09:26)
[2018-10-16] MEDS ORDERED: MAGNESIUM SULFATE 50 ML IV ONE (10:45)
[2018-10-16 12:52] VITALS: BP_SYST 104
[2018-10-16 16:13] VITALS: BP_SYST 117
[2018-10-16 16:47] VITALS: BP_SYST 108; BP_SYST 96
[2018-10-16] MEDS ORDERED: ACYCLOVIR 400 MG TABLET PO SCH (21:00)
[2018-10-17] MEDS ORDERED: FLUCONAZOLE 100 MG TABLET (DIFLUCAN) PO SCH (09:00)
== END 2018-10-16 18:18 | DRG 871 ==
LOC: SED 21:08 → STU 10-09 00:38 → SIC 10-10 12:33 → STU 10-11 18:00 → SMU 10-14 11:05
PROVIDERS: ADMIT Internal Medicine; ATTEND Internal Medicine Hospice and Palliative Medicine
PROC: 30233N1 Transfusion of Nonautologous Red Blood Cells into Peripheral Vein, Percutaneous Approach (ICD-10-PCS; 2018-10-10)
PROC: 30233R1 Transfusion of Nonautologous Platelets into Peripheral Vein, Percutaneous Approach (ICD-10-PCS; principal; 2018-10-11)
DX: A41.89 Other specified sepsis (principal); J18.9 Pneumonia, unspecified organism; E43 Unspecified severe protein-calorie malnutrition; D61.810 Antineoplastic chemotherapy induced pancytopenia; B37.0 Candidal stomatitis; C85.90 Non-Hodgkin lymphoma, unspecified, unspecified site; J44.0 Chronic obstructive pulmonary disease with (acute) lower respiratory infection; J94.2 Hemothorax; Z68.1 Body mass index [BMI] 19.9 or less, adult; I12.9 Hypertensive chronic kidney disease with stage 1 through stage 4 chronic kidney disease, or unspecified chronic kidney disease; E11.22 Type 2 diabetes mellitus with diabetic chronic kidney disease; E87.5 Hyperkalemia; K12.30 Oral mucositis (ulcerative), unspecified; R59.1 Generalized enlarged lymph nodes; N18.9 Chronic kidney disease, unspecified; R13.10 Dysphagia, unspecified; E78.5 Hyperlipidemia, unspecified; T45.1X5A Adverse effect of antineoplastic and immunosuppressive drugs, initial encounter; Y95 Nosocomial condition; Z92.21 Personal history of antineoplastic chemotherapy; Z79.899 Other long term (current) drug therapy; Y92.89 Other specified places as the place of occurrence of the external cause
CPT/HCPCS: 36415; 36600; 71045; 71250-TC; 80048; 80053; 81000-TC; 82607; 82728; 82746; 82803-TC; 82962; 83540-TC; 83550-TC; 83605; 83735-TC; 83880; 84100-TC; 84132-TC; 84484; 85007; 85025; 85027; 85384-TC; 85610-TC; 85730-TC; 86886; 86900; 86901; 86920; 86945-TC; 87040-TC; 87081; 87086; 87205-TC; 93005; 94640; 94760; 96365; 96368; 97110-GP; 97116-GP; 97530-GP; 99291; C9113; G0378; J0133; J0692; J0780; J1447; J1450; J1940; J1956; J2001; J2248; J2270; J2405; J2543; J3370; J3475; J3480; J7030; J7040; J7050; J7060; J7620; P9021; P9034